=== PATIENT | male | born 1960 | race Caucasian/White ===

== ENCOUNTER → 2018-06-24 | Outpatient (CLI) | payer BC, OTHER ==
[2017-11-14 16:02] VITALS: BP 150/93
[~2018-06-24] MED LIST: ALLO300T PO; ASPI-482 PO; HYDR12.58 PO; LISI-334 PO; VALS1TAB27 PO
--- NOTE | 2018-06-24 17:04 | KCIC ---
MRI left knee without contrast dated 06/24/2018 4:15 PM Indication: Pain , recent fall stiffness injury 4 days ago Comparison: No comparison is available. Technique: Routine multiplanar multisequence imaging performed. . Findings: Mild tricompartmental hypertrophic change with small marginal osteophytes. Thinning and surface irregularity of the articular cartilage throughout. There is full-thickness cartilage fissuring at the patellar apex with near full-thickness cartilage loss at the medial facet and odd facet. Possible full-thickness cartilage fissuring at the medial femoral trochlea. There is a small focal zone of subchondral edema at the lateral tibial plateau which appears linear in configuration and extends to the articular surface (best seen on series 7 image 16 and series 6 image 6. Marrow signal is otherwise homogeneous. Small joint effusion. Small popliteal cyst. No intra-articular loose body. There is increased signal throughout the ACL. ACL fibers remain intact anatomically aligned. PCL is intact. There is edema along the superficial and deep margins of the MCL complex proximally with ill-definition of proximal fibers. No significant retraction. Lateral collateral complex, iliotibial band and popliteus tendon intact. Quadriceps and patellar tendon are intact. There is edema extending along the superficial and deep margins of the medial retinaculum and medial patellofemoral ligament. The femoral attachment of the MPFL is ill-defined. Both menisci are normal in morphology and signal. No articular surface tear or perimeniscal cyst. IMPRESSION: 1. Intermediate grade strain of the medial collateral ligament complex with probable partial-thickness tearing at its femoral attachment. No ligamentous retraction. 2. Increased signal of the ACL, without definite tear. This could be related to mucoid degeneration or intrasubstance partial thickness tearing. Recommend physical exam correlation. 3. Probable strain of the medial retinaculum and medial patellofemoral ligament. There is suspected partial-thickness tearing of the MPFL at its femoral attachment. 4. Small subchondral impaction fracture versus stress fracture of the lateral tibial plateau. 5. Small joint effusion and small popliteal cyst. 6. No apparent meniscal tear. 7. Anterior compartment chondromalacia. Electronically signed by: Marvin Estrada MD (06/24/2018 5:01 PM) [id number]
== END | disposition home or self-care (01) ==
LOC: KCIC MRI 15:50
PROVIDERS: ATTEND Family Medicine
DX: M25.462 Effusion, left knee (principal); M71.22 Synovial cyst of popliteal space [Baker], left knee; M94.262 Chondromalacia, left knee; I10 Essential (primary) hypertension; E78.5 Hyperlipidemia, unspecified
CPT/HCPCS: 73721